=== PATIENT | female | born 1980 | race Caucasian/White ===

== ENCOUNTER 2021-09-02 19:38 | Emergency (ER) | payer SELFPAY ==
[2021-09-02] MEDS ORDERED: BACTRIM DS TAB1 EACH PO (20:14)
[2021-09-02] MEDS ORDERED: BACITRACIN15 GM TOP (20:15)
[2021-09-02] MEDS ORDERED: CIPRODEX OTIC7.5 ML AU (20:15)
== END 2021-09-02 20:20 | disposition home or self-care (01) ==
LOC: FER 19:38
DX: H60.13 Cellulitis of external ear, bilateral (principal)
CPT/HCPCS: 99283